=== PATIENT | male | born 1960 | race Caucasian/White ===

== ENCOUNTER 2023-05-26 08:16 | Day surgery (SDC) | payer BC ==
--- NOTE | 2023-05-26 08:02 | HP ---
DATE OF SURGERY: 05/26/2023 HISTORY OF PRESENT ILLNESS: The patient is a 62-year-old gentleman last colonoscopy nearly ten years ago had a few polyps. No bloody stools. No change in bowel movements. No new pain. Family history negative for colon cancer. PAST MEDICAL HISTORY: Gout, type 2 diabetes, hypertension, depression, history of headaches in the past. He had some had some heart disease and had a pacemaker. He had some arthritis, heartburn, COPD. PAST SURGICAL HISTORY: Pacemaker. Colonoscopy in the past. Tonsillectomy. Left knee replacement in the past. MEDICATIONS: Tresiba, atorvastatin, metoprolol, tadalafil, hydrochlorothiazide, amlodipine. ALLERGIES: PREDNISONE. NICKEL (LOCAL SKIN RASH). FAMILY HISTORY: Negative colon cancer. SOCIAL HISTORY: No smoking. Occasional alcohol use. REVIEW OF SYSTEMS: Twelve systems reviewed. No chest pain or palpitations. Other systems negative or noncontributory as above and per preadmission questionnaire. PHYSICAL EXAMINATION: Height 5 feet 11 inches. BMI 34.31. GENERAL: No acute distress. HEENT: Sclerae nonicteric. EOMI. Oral mucous membranes moist. NECK: No JVD. CHEST: Equal excursion, nonlabored breathing. CVS: Regular rate and rhythm. ABDOMEN: Soft. EXTREMITIES: No cyanosis or edema. NEURO: Alert, oriented, moving extremities symmetrically. RECTAL: Deferred timed to endoscopy exam. PSYCH: Appropriate mood and affect. SKIN: Dry. IMPRESSION: History of polyps in the past. He is in need of follow up screening colonoscopy. I feel he is a candidate. He was shown the risk sheet explained the procedure in detail including but not limited to risk of bleeding or infection, risk of bowel injury or perforation possibly requiring further procedure, risk of missed or nondiagnosis or incomplete exam possibly requiring barium enema, other studies, procedures or referrals, risk of anesthesia or sedation, risk of bowel prep but not limited to. Will proceed with outpatient screening colonoscopy under MAC anesthesia. Otherwise, continue medications for gout, hypertension, diabetes, arthritis, hyperlipidemia, reflux, headaches and COPD.
[2023-05-26] MEDS: Lactated Ringers 1,000 ML IV SCH (08:40)
[2023-05-26 08:42] VITALS: RESP 18
[2023-05-26] MEDS ORDERED: APRESOLINE 20 MG/ML INJ ONE (09:13)
[2023-05-26] MEDS: APRESOLINE 20 MG/ML INJ IV PRN (09:16)
[2023-05-26] MEDS ORDERED: DIPRIVAN 200 MG/20 ML IV ONE ×2 (10:47→11:33)
[2023-05-26] MEDS ORDERED: Xylocaine-Mpf 2% 5 Ml Vial ONE (10:54)
[2023-05-26] MEDS ORDERED: Versed 2 MG/2 ML Injection ONE (10:56)
[2023-05-26 12:09] VITALS: O2SAT 95
[2023-05-26 12:20] VITALS: BP 147/101; PULSE 75; TEMP 97.3
--- NOTE | 2023-05-27 09:09 | OP ---
SURGERY DATE/TIME: 05/26/2023 1102 PREOPERATIVE DIAGNOSIS: History of polyps needs follow up screening colonoscopy. POSTOPERATIVE DIAGNOSES: 1) Transverse colon polyp x2. 2) Rectosigmoid colon polyp x1. 3) Limited bowel prep. PROCEDURES: 1) Colonoscopy to cecum. 2) Hot snare polypectomy transverse colon polyp. 3) Hot snare polypectomy rectosigmoid colon polyp. 4) Hot biopsy polypectomy of smaller second transverse colon polyp. 5) Withdrawal time approximately 18 minutes. 6) Limited bowel prep. SURGEON: Dr. Vega Luis M.D. ANESTHESIA: MAC. ESTIMATED BLOOD LOSS: Minimal. INDICATIONS: As noted above. Risks and benefits explained in detail but not limited to and consent obtained. DESCRIPTION OF PROCEDURE AND FINDINGS: The patient is taken to the endoscopy room. MAC anesthesia induced. After official time out and no disagreement with planned procedure, digital rectal exam did not reveal any rectal masses. Video colonoscope inserted and passed up through the tortuous sigmoid, descending, transverse and ascending colon passed around to the cecum. Appendiceal orifice and ileocecal valve well visualized. He had a large amount of liquidy semisolid stool throughout the colon on exam limiting the exam for very small lesions this is suctioned irrigated out as clear as possible. It took additional time. The scope is slowly and carefully withdrawn approximately 18 minutes. There was a polyp that was hard to see because of the intermittent stool covered it. Transverse colon polyps removed with hot snare polypectomy. As we retreated there was another small transverse colon polyp that was removed with hot biopsy polypectomy. The scope pulled around to the rectosigmoid and another pedunculated polyp about 3 to 3.5 mm removed with hot snare polypectomy. Good hemostasis noted. No signs of any real large polyps, masses or any other obstructing lesions. Again, given the very limited prep, suggest follow up colonoscopy in two years rather than three. Findings discussed with the family out in the waiting area.
== END 2023-05-26 12:25 | disposition home or self-care (01) ==
LOC: SDC 08:16
PROVIDERS: ATTEND Surgery
DX: Z12.11 Encounter for screening for malignant neoplasm of colon (principal); Z09 Encounter for follow-up examination after completed treatment for conditions other than malignant neoplasm; Z86.010 Personal history of colon polyps; E11.9 Type 2 diabetes mellitus without complications; D12.3 Benign neoplasm of transverse colon
CPT/HCPCS: 82947; J0360; J2250; J2704